=== PATIENT | male | born 1980 | race American Indian/Alaskan Native ===

== ENCOUNTER 2017-11-21 11:27 | Emergency (ER) | payer MEDICAID ==
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
[2017-11-21 12:24] LABS: CHLORIDE,CL 104 mEq/L (98-106); SODIUM,NA 138 mEq/L (136-145)
== END 2017-11-21 12:43 | disposition home or self-care (01) ==
LOC: CC.ED 11:27
DX: R56.9 Unspecified convulsions (principal); F17.210 Nicotine dependence, cigarettes, uncomplicated
CPT/HCPCS: 36415; 80053; 80305; 81003; 82550; 83615; 85025; 86140; 99284